=== PATIENT | female | born 1965 | race Caucasian/White ===

== ENCOUNTER 2018-05-10 14:44 | Emergency (ER) | payer MEDICARE ==
[2018-05-10 16:53] LABS: EOSINOPHILS % (AUTO) 2.6 % (0.0-8.0); HEMATOCRIT 39.4 % (36-48); LYMPHOCYTES % (AUTO) 23.4 % (21.0-51.0); MEAN CORPUSCULAR HGB CONC 33.3 g/dL (32.0-36.0); MEAN CORPUSCULAR VOLUME 93.2 fL (79-99); MONOCYTES % (AUTO) 7.1 % (3.0-13.0); NEUTROPHILS % (AUTO) 65.9 % (40.0-77.0); PLATELET COUNT (AUTO) 315 K/uL (130-400); RED BLOOD CELL COUNT(AUTO) 4.23 MIL/uL (4.00-5.50); RED CELL DISTRIBUTION WIDTH 13.5 % (11.0-15.5); WHITE BLOOD COUNT (AUTO) 11.6 K/uL (4.8-10.8)
[2018-05-10] MEDS ORDERED: ONDANSETRON HCL 4 MG/2 ML VIAL ONE (17:06)
[2018-05-10] MEDS ORDERED: KETOROLAC TROMETHAMINE 30MG/ML ONE (17:06)
[2018-05-10] MEDS ORDERED: MORPHINE SULFATE 2 MG/ML 1ML SYG ONE (17:07)
[2018-05-10 17:30] LABS: INR 0.87 (0.85-1.15); PARTIAL THROMBOPLASTIN TIME 28.6 SEC (26.3-35.5); PROTHROMBIN TIME 9.2 SEC (9.6-11.6)
[2018-05-10 17:47] LABS: CARBON DIOXIDE 28 mmol/L (21-32); CHLORIDE 102 mmol/L (101-111); CREATININE 0.8 mg/dL (0.5-1.5); GLOMERULAR FILTR. RATE CALC 80 mL/min (>60); GLUCOSE,RANDOM 159 mg/dL (70-105); POTASSIUM 4.5 mmol/L (3.5-5.1); SODIUM SERUM 139 mmol/L (136-145); UREA NITROGEN, BLOOD 10 mg/dL (7-18)
[2018-05-10 17:48] LABS: APPEARANCE,URINE Clear (CLEAR); BILIRUBIN,URINE Negative (NEGATIVE); COLOR,URINE Yellow (YELLOW); GLUCOSE, URINE (UA) Negative (NEGATIVE); KETONES,URINE Negative (NEGATIVE); LEUKOCYTE ESTERASE ,URINE Negative (NEGATIVE); NITRATE,URINE Negative (NEGATIVE); OCCULT BLOOD,URINE Negative (NEGATIVE); PH,URINE 5.5 (5.0-8.0); PROTEIN,URINE Negative (NEGATIVE); UROBILINOGEN,URINE 0.2 mg/dL (0.2-1.0)
[2018-05-10 17:51] LABS: ALANINE AMINOTRANSFERASE 91 U/L (12-78); ALBUMIN 3.4 g/dL (3.5-5.0); ASPARTATE AMINOTRANSFERASE 57 U/L (10-37); BILIRUBIN,DIRECT < 0.1 mg/dL (0.0-0.3); BILIRUBIN,TOTAL 0.2 mg/dL (0.2-1.0); CREATINE KINASE, TOTAL 136 U/L (21-232); LIPASE 206 U/L (114-286); TOTAL PROTEIN, SERUM 7.6 g/dL (6.0-8.3)
== END 2018-05-10 19:54 | disposition home or self-care (01) ==
LOC: EDH 14:44
DX: R10.12 Left upper quadrant pain (principal); R07.89 Other chest pain; F41.9 Anxiety disorder, unspecified; F31.9 Bipolar disorder, unspecified; Z87.891 Personal history of nicotine dependence
CPT/HCPCS: 36415; 71046; 74176; 80048; 80076; 81003; 82550; 83690; 84484; 85025; 85610; 85730; 93005; 96374; 96375; 99284; J1885; J2405

== ENCOUNTER → 2019-05-13 | Outpatient (CLI) | payer MEDICARE | END | disposition home or self-care (01) | LOC: OIH 14:33 | PROVIDERS: ATTEND Internal Medicine | DX: R05 Cough (principal); K21.9 Gastro-esophageal reflux disease without esophagitis | CPT/HCPCS: 71046 ==

== ENCOUNTER 2021-06-29 22:17 | Emergency (ER) | payer MEDICARE ==
[2021-06-29] MEDS ORDERED: 0.9%NACL 1000ML 1,000 ML IV ONE (23:30)
[2021-06-29] MEDS ORDERED: ONDANSETRON 4MG INJ IVP ONE (23:30)
[2021-06-29 23:56] LABS: BASOPHILS % (AUTO) 0.5 % (0.0-5.0); EOSINOPHILS % (AUTO) 0.1 % (0.0-8.0); HEMATOCRIT 34.5 % (36-48); LYMPHOCYTES % (AUTO) 8.3 % (21.0-51.0); MEAN CORPUSCULAR HEMOGLOBIN 30.2 pg (27.0-33.0); MEAN CORPUSCULAR HGB CONC 34.2 g/dL (32.0-36.0); MEAN CORPUSCULAR VOLUME 88.2 fL (79-99); MONOCYTES % (AUTO) 10.8 % (3.0-13.0); PLATELET COUNT (AUTO) 227 K/uL (130-400); RED BLOOD CELL COUNT(AUTO) 3.91 MIL/uL (4.00-5.50); RED CELL DISTRIBUTION WIDTH 12.3 % (11.0-15.5); WHITE BLOOD COUNT (AUTO) 9.9 K/uL (4.8-10.8)
[2021-06-30] MEDS ORDERED: GUAIFENESIN-DM 200/20 MG 10 ML PO ONE
[2021-06-30 00:10] LABS: POTASSIUM 3.5 mmol/L (3.5-5.1)
[2021-06-30 00:14] LABS: ALBUMIN 3.6 g/dL (3.5-5.0); BILIRUBIN,TOTAL 0.3 mg/dL (0.2-1.0); TOTAL PROTEIN, SERUM 7.1 g/dL (6.0-8.3)
[2021-06-30] MEDS ORDERED: ONDA-104 PO (00:16)
[2021-06-30] MEDS ORDERED: D-ME118S47 PO (00:16)
[2021-06-30 00:25] VITALS: BP 134/66
[2021-06-30 00:33] LABS: APPEARANCE,URINE Clear (CLEAR); BILIRUBIN,URINE Negative (NEGATIVE); COLOR,URINE Yellow (YELLOW); GLUCOSE, URINE (UA) Negative (NEGATIVE); KETONES,URINE 15 mg/dL (NEGATIVE); LEUKOCYTE ESTERASE ,URINE Negative (NEGATIVE); NITRATE,URINE Negative (NEGATIVE); OCCULT BLOOD,URINE Negative (NEGATIVE); PH,URINE 6.5 (5.0-8.0); PROTEIN,URINE Trace mg/dL (NEGATIVE)
[2021-06-30 00:47] LABS: BACTERIA,URINE None Seen /HPF (None Seen); RBC,URINE 0-1 /HPF (0-1); SQUAMOUS EPITHELIAL CELL,UR Few /HPF (0-2)
== END 2021-06-30 00:42 | disposition home or self-care (01) ==
LOC: EDH 22:17
DX: J11.1 Influenza due to unidentified influenza virus with other respiratory manifestations (principal); F41.9 Anxiety disorder, unspecified; F32.A Depression, unspecified
CPT/HCPCS: 36415; 80053; 81001; 85025; 96361; 96374; 99283; J2405; J7030

== ENCOUNTER 2023-12-07 18:30 | Emergency (ER) | payer OTHER ==
[~2023-12-07] VITALS: Ht 157.5 cm; Wt 90.7 kg
[~2023-12-07 18:30] MED LIST: BROM118S48 PO; ONDA-104 PO
[2023-12-07 18:54] LABS: BASOPHILS # (AUTO) 0.08 K/uL (0.00-0.20); BASOPHILS % (AUTO) 0.6 % (0.0-5.0); EOSINOPHILS # (AUTO) 0.16 K/uL (0.00-0.70); EOSINOPHILS % (AUTO) 1.3 % (0.0-8.0); HEMATOCRIT 38.8 % (36-48); IMMATURE GRANULOCYTE ABSOLUTE 0.02 K/uL (0-1); LYMPHOCYTES # (AUTO) 3.5 K/uL (1.0-4.8); LYMPHOCYTES % (AUTO) 28.7 % (21.0-51.0); MEAN CORPUSCULAR HEMOGLOBIN 31.1 pg (27.0-33.0); MEAN CORPUSCULAR HGB CONC 35.1 g/dL (32.0-36.0); MEAN CORPUSCULAR VOLUME 88.8 fL (79-99); MONOCYTES # (AUTO) 0.7 K/uL (0.1-1.0); MONOCYTES % (AUTO) 5.8 % (3.0-13.0); NEUTROPHILS # (AUTO) 7.8 K/uL (1.8-7.7); NEUTROPHILS % (AUTO) 63.4 % (40.0-77.0); PLATELET COUNT (AUTO) 259 K/uL (130-400); RED BLOOD CELL COUNT(AUTO) 4.37 MIL/uL (4.00-5.50); WHITE BLOOD COUNT (AUTO) 12.3 K/uL (4.8-10.8)
[2023-12-07 19:07] LABS: POTASSIUM 3.7 mmol/L (3.5-5.1)
[2023-12-07 19:31] LABS: B-TYPE NATRIURETIC PEPTIDE < 5 pg/mL (0-100)
[2023-12-07] MEDS: 0.9%NACL 1000ML 1,000 ML IV SCH (20:47)
[2023-12-07 21:12] LABS: APPEARANCE,URINE CLEAR (CLEAR); BILIRUBIN,URINE NEGATIVE (NEGATIVE); COLOR,URINE LIGHT-YELLOW (YELLOW); GLUCOSE, URINE (UA) NEGATIVE (NEGATIVE); KETONES,URINE NEGATIVE (NEGATIVE); LEUKOCYTE ESTERASE ,URINE NEGATIVE Leu/uL (NEGATIVE); NITRATE,URINE NEGATIVE (NEGATIVE); OCCULT BLOOD,URINE NEGATIVE (NEGATIVE); PH,URINE 6.5 (5.0-8.0); PROTEIN,URINE NEGATIVE (NEGATIVE); UROBILINOGEN,URINE 0.2 mg/dL (0.2-1.0)
[2023-12-07 21:13] LABS: ADD UA MICROSCOPIC NO
[2023-12-07] MEDS ORDERED: ASPI-1197 PO (21:31)
[2023-12-07 22:09] VITALS: BP 155/76; PULSE 88; RESP 18; TEMP 98; O2SAT 98
== END 2023-12-07 22:13 | disposition home or self-care (01) ==
LOC: EDH 18:30
DX: R07.89 Other chest pain (principal); E86.0 Dehydration; E11.9 Type 2 diabetes mellitus without complications; E78.00 Pure hypercholesterolemia, unspecified; I10 Essential (primary) hypertension; E66.9 Obesity, unspecified; Z68.30 Body mass index [BMI] 30.0-30.9, adult; Z90.710 Acquired absence of both cervix and uterus; Z90.89 Acquired absence of other organs; Z98.890 Other specified postprocedural states; Z68.36 Body mass index [BMI] 36.0-36.9, adult
CPT/HCPCS: 99285; 96360; 71045; 80048; 83880; 85025; 81003; 36415; 93005; J7030

== ENCOUNTER 2024-07-04 14:12 | Emergency (ER) | payer OTHER ==
[~2024-07-04] VITALS: Ht 160 cm; Wt 83.5 kg
[~2024-07-04 14:12] MED LIST changes: +ASPI-1197 PO
--- NOTE | 2024-07-04 14:27 | NUR ---
POISON CONTROL NOTIFIED, STATES OZEMPIC IS NOT AT TOXIC LEVEL, RECOMENDS SYMPTOMATIC SUPPORT, , EXPECTED TO SEE INCREASED SIDE EFFECTS CASE # [id number] SPOKE TO STEVEN
[2024-07-04 14:49] LABS: BASOPHILS # (AUTO) 0.07 K/uL (0.00-0.20); BASOPHILS % (AUTO) 0.7 % (0.0-5.0); EOSINOPHILS # (AUTO) 0.04 K/uL (0.00-0.70); EOSINOPHILS % (AUTO) 0.4 % (0.0-8.0); HEMATOCRIT 40.9 % (36-48); IMMATURE GRANULOCYTE ABSOLUTE 0.02 K/uL (0-1); LYMPHOCYTES # (AUTO) 2.9 K/uL (1.0-4.8); LYMPHOCYTES % (AUTO) 27.4 % (21.0-51.0); MEAN CORPUSCULAR HEMOGLOBIN 31.3 pg (27.0-33.0); MEAN CORPUSCULAR HGB CONC 34.5 g/dL (32.0-36.0); MEAN CORPUSCULAR VOLUME 90.9 fL (79-99); MONOCYTES # (AUTO) 0.7 K/uL (0.1-1.0); MONOCYTES % (AUTO) 6.2 % (3.0-13.0); NEUTROPHILS # (AUTO) 6.9 K/uL (1.8-7.7); NEUTROPHILS % (AUTO) 65.1 % (40.0-77.0); PLATELET COUNT (AUTO) 300 K/uL (130-400); RED CELL DISTRIBUTION WIDTH 12.2 % (11.0-15.5); WHITE BLOOD COUNT (AUTO) 10.6 K/uL (4.8-10.8)
[2024-07-04 14:59] LABS: CREATININE 0.9 mg/dL (0.5-1.0); POTASSIUM 3.7 mmol/L (3.5-5.1)
[2024-07-04] MEDS: 0.9%NACL 1000ML 1,000 ML IV STA ×2 (15:14→17:05)
[2024-07-04] MEDS: ondanSETRON 4MG INJ IVP STA (15:14)
[2024-07-04] MEDS: FAMOTIDINE 20MG VIAL IV STA (15:14)
[2024-07-04] MEDS: MAG/ALUM/SIMETH 30 ML UDCUP PO ONE (15:15)
[2024-07-04] MEDS: LIDOCAINE HCL 2% VISCOUS 15 ML UDCUP PO ONE (15:15)
[2024-07-04] MEDS: DICYCLOMINE HCL 10 MG/5 ML ML PO ONE (15:15)
[2024-07-04] MEDS: acetaMINOPHEN 500 MG TABLET PO STA (15:15)
[2024-07-04] MEDS: DiphenhydrAMINE HCL 50 MG/ML VIAL IV STA (16:58)
[2024-07-04] MEDS: PROCHLORPERAZINE 10MG/2ML INJ IV STA (16:58)
--- NOTE | 2024-07-04 17:35 | ERN ---
ED Note History of Present Illness Stated Complaint: ACCIDENTAL OVERDOSE Chief Complaint: Overdose Time Seen by MD: 14:20 Time Seen by Midlevel: 14:22 Dictation: 58-YEAR-OLD FEMALE WITH A HISTORY OF DIABETES COMING IN WITH COMPLAINTS OF NAUSEA, HEADACHE AND BILATERAL EYE PAIN AFTER TAKING OZEMPIC. PATIENT STATES SHE PICKED UP FEEL OZEMPIC AND NOBODY GAVE HER INSTRUCTIONS HOW TO TAKE HIS THE SHE TOOK 0.5 MONDAY, MONDAY, MONDAY INSTEAD OF JUST ONE WEEKLY. POISON CONTROL WAS CALLED BY TRIAGE NURSE. POISON CONTROL RECOMMENDED SYMPTOMATIC CONTROL AND TO STOP TAKING THE MEDICATION UNTIL NEXT WEEK. Allergies: Coded Allergies: No Known Drug Allergies (Unverified Allergy, Unknown, 06/29/21) Home Meds Active Scripts Aspirin (Aspirin) 81 Mg Tab.chew, 81 MG PO DAILY for 30 Days, #30 TAB.CHEW Prov:RONA TAMAYO MD 12/07/23 Ondansetron HCl (Ondansetron HCl) 4 Mg Tablet, 4 MG PO TID, #15 TAB Prov:OLI DAVIS MD 06/30/21 D-Methorphan Hb/P-Epd HCl/Bpm (Bromfed Dm Cough Syrup) 118 Ml Syrup, 10 ML PO QID, #120 ML Prov:OLI DAVIS MD 06/30/21 Past Medical History Past Medical History: Anxiety, Bipolar, Depression, Diabetes-Type II, Hypertension, Kidney Stone Surgical History: Hysterectomy, Cholecystectomy, Surgical History Other: L WRIST Social History: Negative, Lives with family History: Not Applicable Review of System Dictation CONSTITUTIONAL: NEGATIVE FOR FEVER,CHILLS, AND WEIGHT LOSS EYES: NEGATIVE FOR INJURY, PAIN,REDNESS, AND DISCHARGE ENT: NEGATIVE FOR INJURY,PAIN OR SWELLING CARDIOVASCULAR: NEGATIVE FOR CHEST PAIN, PALPITATIONS, AND EDEMA RESPIRATORY: NEGATIVE FOR SHORTNESS OF BREATH, COUGH, AND WHEEZING, ABDOMEN/GI: NEGATIVE FOR ABDOMINAL PAIN, POSITIVE NAUSEA, NO VOMITING, NO DIARRHEA, AND NO CONSTIPATION BACK: NEGATIVE FOR INJURY AND PAIN : NEGATIVE FOR INJURY, BLEEDING AND DISCHARGE MS/EXTREMITY: NEGATIVE FOR INJURY AND DEFORMITY SKIN: NEGATIVE FOR RASH, AND DISCOLORATION NEURO: NEGATIVE FOR HEADACHE, WEAKNESS, NUMBNESS, TINGLING, AND SEIZURE PSYCH: NEGATIVE FOR SUICIDE IDEATION, HOMICIDAL IDEATION, AND HALLUCINATIONS Review of Systems: was completed Initial Vital Sign VS Vital Signs Date Time Temp Pulse Resp B/P (MAP) Pulse Ox O2 Delivery O2 Flow Rate FiO2 07/04/24 14:12 99.3 70 20 181/93 99 Room Air 0 07/04/24 14:31 21 Physical Exam Dictation GENERAL: AWAKE, ALERT, NAD HEAD/FACE: NORMOCEPHALIC, ATRAUMATIC EYES: PERRL, EOMI, VISION AT BASELINE ENT: ORAL CAVITY CLEAR, TMS CLEAR, NO SIGNS OF INFECTION NECK: TRACHEA MIDLINE, SUPPLE, NO NUCHAL RIGIDITY CARDIOVASCULAR: RRR, NORMAL S1/S2, NO MRGS, NO JVD RESPIRATORY: CTAB, NO RESPIRATORY DISTRESS, NO RALES OR WHEEZES ABDOMEN: SOFT, NON-TENDER, NON-DISTENDED, NORMAL BOWEL SOUNDS, NO GUARDING OR REBOUND. SKIN: WARM, DRY, NORMAL TURGOR, NO RASH MS/EXTREMITY: PULSES EQUAL, NO CYANOSIS, NEUROVASCULAR INTACT, FROM NEURO: COAX4, GCS 15, STRENGTH 5/5, CN 2-12 INTACT, NORMAL CEREBELLAR EXAM, NORMAL GAIT, PSYCH: NORMAL BEHAVIOR, MOOD, AND AFFECT NORMAL Results (Laboratory/Radiology) Laboratory/Radiology Laboratory Tests Test 07/04/24 14:40 White Blood Count 10.6 K/uL (4.8-10.8) Red Blood Count 4.50 MIL/uL (4.00-5.50) Hemoglobin 14.1 g/dL (12.0-16.0) Hematocrit 40.9 % (36-48) Mean Corpuscular Volume 90.9 fL (79-99) Mean Corpuscular Hemoglobin 31.3 pg (27.0-33.0) Mean Corpuscular Hemoglobin Concent 34.5 g/dL (32.0-36.0) Red Cell Distribution Width 12.2 % (11.0-15.5) Platelet Count 300 K/uL (130-400) Mean Platelet Volume 8.9 fL (7.5-10.5) Immature Granulocyte % (Auto) 0.2 % (0-1) Neutrophils (%) (Auto) 65.1 % (40.0-77.0) Lymphocytes (%) (Auto) 27.4 % (21.0-51.0) Monocytes (%) (Auto) 6.2 % (3.0-13.0) Eosinophils (%) (Auto) 0.4 % (0.0-8.0) Basophils (%) (Auto) 0.7 % (0.0-5.0) Neutrophils # (Auto) 6.9 K/uL (1.8-7.7) Lymphocytes # (Auto) 2.9 K/uL (1.0-4.8) Monocytes # (Auto) 0.7 K/uL (0.1-1.0) Eosinophils # (Auto) 0.04 K/uL (0.00-0.70) Basophils # (Auto) 0.07 K/uL (0.00-0.20) Absolute Immature Granulocyte (auto 0.02 K/uL (0-1) Nucleated Red Blood Cells 0.0 % (0.0-0.19) Sodium Level 139 mmol/L (136-145) Potassium Level 3.7 mmol/L (3.5-5.1) Chloride Level 102 mmol/L (101-111) Carbon Dioxide Level 29 mmol/L (21-32) Blood Urea Nitrogen 7 mg/dL (7-18) Creatinine 0.9 mg/dL (0.5-1.0) Glomerular Filtration Rate Calc 74 mL/min (>90) Random Glucose 239 mg/dL (70-105) H Total Calcium 9.0 mg/dL (8.5-10.1) Lipase 26 U/L (16-77) Labs Reviewed?: Yes ED Course ED Course Orders Procedure Category Date Status Time Cbc With Differential LAB 07/04/24 Complete 14:21 Basic Metabolic Panel LAB 07/04/24 Complete 14:21 Lipase LAB 07/04/24 Complete 14:21 0.9%Nacl 1000ml (Ns PHA 07/04/24 Complete 1000ml) 14:21 Ondansetron 4mg Inj PHA 07/04/24 Complete (Zofran 4mg Inj) 14:21 Famotidine 20mg Vial PHA 07/04/24 Complete (Pepcid 20mg Vial) 14:21 Lidocaine Hcl 2% PHA 07/04/24 Complete Viscous (Lidocaine Hcl 14:30 Mag/Alum/Simeth 30ml PHA 07/04/24 Complete (Maalox Plus 30ml) 14:30 Dicyclomine Hcl PHA 07/04/24 Complete (Bentyl 10mg/5ml 14:30 Acetaminophen 500mg PHA 07/04/24 Complete Tab (Tylenol 500mg T 14:25 0.9%Nacl 1000ml (Ns PHA 07/04/24 Complete 1000ml) 16:12 Diphenhydramine Hcl PHA 07/04/24 Complete (Benadryl Inj) 16:12 Prochlorperazine PHA 07/04/24 Complete 10mg/2ml Inj 16:12 Current Medications Medications (Trade) Dose Ordered Sig/Damien Route PRN Reason Start Time Stop Time Status Last Admin Dose Admin Acetaminophen (TYLenol 500MG TAB) 1,000 mg ONCE STAT PO 07/04/24 14:25 07/04/24 14:28 DC 07/04/24 15:15 Al Hydroxide/Mg Hydroxide (MAALox PLUS 30ML) 30 ml ONCE ONCE PO 07/04/24 14:30 07/04/24 14:31 DC 07/04/24 15:15 Dicyclomine HCl (Bentyl 10mg/5ml Syrup) 10 mg ONCE ONCE PO 07/04/24 14:30 07/04/24 14:31 DC 07/04/24 15:15 Diphenhydramine HCl (BENAdryl INJ) 25 mg ONCE STAT IV 07/04/24 16:12 07/04/24 16:18 DC 07/04/24 16:58 Famotidine (Pepcid 20mg Vial) 20 mg ONCE STAT IV 07/04/24 14:21 07/04/24 14:24 DC 07/04/24 15:14 Lidocaine HCl (Lidocaine HCl 2% Viscous) 10 ml ONCE ONCE PO 07/04/24 14:30 07/04/24 14:31 DC 07/04/24 15:15 Ondansetron HCl (zoFRAN 4MG INJ) 4 mg ONCE STAT IVP 07/04/24 14:21 07/04/24 14:25 DC 07/04/24 15:14 Prochlorperazine Edisylate (Compazine 10mg/ 2ml Inj) 10 mg ONCE STAT IV 07/04/24 16:12 07/04/24 16:18 DC 07/04/24 16:58 Sodium Chloride 1,000 ml @ 500 mls/hr Q2H STAT IV 07/04/24 16:12 07/04/24 18:11 DC 07/04/24 17:05 Sodium Chloride 1,000 ml @ 1,000 mls/hr Q1H STAT IV 07/04/24 14:21 07/04/24 15:20 DC 07/04/24 15:14 Vital Signs Date Time Temp Pulse Resp B/P (MAP) Pulse Ox O2 Delivery O2 Flow Rate FiO2 07/04/24 18:01 98.4 77 18 166/79 97 Room Air* 0 21 07/04/24 14:31 99.0 69 22 181/87 97 Room Air* 0 21 07/04/24 14:12 99.3 70 20 181/93 99 Room Air 0 Medical Decision Making MDM MDM: 58-YEAR-OLD FEMALE WITH A HISTORY OF DIABETES COMING IN WITH COMPLAINTS OF NAUSEA, HEADACHE AND BILATERAL EYE PAIN AFTER TAKING OZEMPIC. PATIENT STATES SHE PICKED UP FEEL OZEMPIC AND NOBODY GAVE HER INSTRUCTIONS HOW TO TAKE HIS THE SHE TOOK 0.5 MONDAY, MONDAY, MONDAY INSTEAD OF JUST ONE WEEKLY. POISON CONTROL WAS CALLED BY TRIAGE NURSE. POISON CONTROL RECOMMENDED SYMPTOMATIC CONTROL AND TO STOP TAKING THE MEDICATION UNTIL NEXT WEEK.CBC SHOWS NO LEUKOCYTOSIS, NO ANEMIA, NO THROMBOCYTOPENIA. CHEMISTRY UNREMARKABLE OTHER THAN HYPERGLYCEMIA AT 2:39 A.M.. AFTER FLUIDS, ANTIEMETICS, PAIN MEDICATION PATIENT FEELS MUCH BETTER. DISCUSSED WITH THE PATIENT RECOMMENDATION FROM POISON CONTROL. TOLD HER TO AVOID TAKING THOSE IMPACT UNTIL NEXT WEEK. PATIENT VERBALIZED UNDERSTANDING, ANSWERED ALL QUESTIONS. DIFFERENTIAL DIAGNOSIS: HYPOGLYCEMIA, GASTROENTERITIS, RATIONALE: TESTS CONSIDERED AND ORDERED SECONDARY TO SHARED DECISION MAKING INCLUDE: PREVIOUS OUTSIDE RECORDS REVIEWED: OLD ER VISITS. RISK OF COMPLICATION AND/OR MORBIDITY OR MORTALITY OF PATIENT MANAGEMENT: NONE MEDICATIONS-PER MEDICATION RECONCILIATION NEED FOR HOSPITALIZATION: PATIENT DOES NOT MEET CRITERIA FOR HOSPITALIZATION. NEED FOR EMERGENCY MAJOR/MINOR SURGERY: NO THERE ARE NO SOCIAL CONCERNS WITH THIS PATIENT. PRESCRIPTION DRUG MANAGEMENT PRESCRIPTIONS WILL INCLUDE SYMPTOMATIC CARE PATIENT'S PRIOR EXTERNAL MEDICAL RECORDS FROM OTHER ER VISITS WERE REVIEWED BY ME INDICATED. PRIOR TESTING AND RESULTS FROM PREVIOUS VISITS WERE REVIEWED. PRIOR TESTS WERE TAKEN INTO ACCOUNT WITH MEDICAL DECISION MAKING AND RESOURCE UTILIZATION, INDEPENDENT HISTORIAN/HISTORIANS WERE USED TO OBTAIN COMPLETE MEDICAL HISTORY. I INDEPENDENTLY INTERPRETED THE TEST THAT WERE PERFORMED, RESULTS WERE REVIEWED BY ME AND CONSIDERED FINDINGS ON RADIOLOGY IF ORDERED. MEDICAL MANAGEMENT AND EXAMINATION INTERPRETATION DISCUSSIONS WERE HAD BY ME WITH OTHER QUALIFIED HEALTHCARE PROFESSIONALS INDICATED FOR THE PATIENT'S CARE. DX & DISP Disposition: Discharge Departure Impression: Primary Impression: Medication adverse effect Condition: Stable Additional Instructions: PLEASE TAKE YOUR OZEMPIC PRESCRIBED. NEXT DOSE SHE WOULD BE NEXT WEEK. CALL YOUR PCP IF YOU HAVE ANY SYMPTOMS OR ANYMORE QUESTIONS REGARDING YOUR MEDICATIONS. Referrals: YOLA CAT MD (PCP) Time of Disposition: 17:34 I have reviewed the case, and I agree with, Diagnosis and Plan MAUREEN RODRIGUEZ NP July 04, 2024 17:35 ZACHARIAH MCFADDEN DO July 05, 2024 09:40
[2024-07-04 18:01] VITALS: BP 166/79; PULSE 77; RESP 18; TEMP 98.4; O2SAT 97
== END 2024-07-04 18:07 | disposition home or self-care (01) ==
LOC: EDH 14:12
DX: R11.0 Nausea (principal); R51.9 Headache, unspecified; H57.13 Ocular pain, bilateral; T50.995A Adverse effect of other drugs, medicaments and biological substances, initial encounter; E11.9 Type 2 diabetes mellitus without complications; F31.9 Bipolar disorder, unspecified; I10 Essential (primary) hypertension; Z79.82 Long term (current) use of aspirin; Z90.49 Acquired absence of other specified parts of digestive tract; Z90.710 Acquired absence of both cervix and uterus; Z98.890 Other specified postprocedural states; Y92.89 Other specified places as the place of occurrence of the external cause
CPT/HCPCS: 99284; 96374; 96375; 96361; 80048; 83690; 85025; 36415; J1200; J3490; J7030 ×2; J0780; J2405

== ENCOUNTER 2024-07-08 11:05 | Emergency (ER) | payer OTHER ==
[~2024-07-08] VITALS: Ht 160 cm; Wt 83.5 kg
[2024-07-08 11:41] LABS: BASOPHILS # (AUTO) 0.05 K/uL (0.00-0.20); BASOPHILS % (AUTO) 0.4 % (0.0-5.0); EOSINOPHILS # (AUTO) 0.15 K/uL (0.00-0.70); EOSINOPHILS % (AUTO) 1.2 % (0.0-8.0); HEMATOCRIT 42.7 % (36-48); IMMATURE GRANULOCYTE ABSOLUTE 0.04 K/uL (0-1); LYMPHOCYTES # (AUTO) 3.9 K/uL (1.0-4.8); LYMPHOCYTES % (AUTO) 32.3 % (21.0-51.0); MEAN CORPUSCULAR HEMOGLOBIN 31.4 pg (27.0-33.0); MEAN CORPUSCULAR HGB CONC 34.7 g/dL (32.0-36.0); MEAN CORPUSCULAR VOLUME 90.7 fL (79-99); MONOCYTES # (AUTO) 0.7 K/uL (0.1-1.0); MONOCYTES % (AUTO) 5.8 % (3.0-13.0); NEUTROPHILS # (AUTO) 7.3 K/uL (1.8-7.7); PLATELET COUNT (AUTO) 322 K/uL (130-400); RED BLOOD CELL COUNT(AUTO) 4.71 MIL/uL (4.00-5.50); RED CELL DISTRIBUTION WIDTH 12.1 % (11.0-15.5); WHITE BLOOD COUNT (AUTO) 12.2 K/uL (4.8-10.8)
[2024-07-08 11:53] LABS: ALBUMIN 3.8 g/dL (3.5-5.0); BILIRUBIN,DIRECT 0.2 mg/dL (0.0-0.3); BILIRUBIN,TOTAL 0.5 mg/dL (0.2-1.0); CREATININE 0.8 mg/dL (0.5-1.0); POTASSIUM 3.8 mmol/L (3.5-5.1); TOTAL PROTEIN, SERUM 8.1 g/dL (6.0-8.3)
[2024-07-08] MEDS: metoCLOPRAmide 10 MG/2 ML VIAL IVP STA (11:59)
[2024-07-08] MEDS: ketOROlac 15MG/ML VIAL (15MG/ML) IV STA (11:59)
[2024-07-08] MEDS: DiphenhydrAMINE HCL 50 MG/ML VIAL IV STA (11:59)
[2024-07-08] MEDS: 0.9%NACL 1000ML 1,000 ML IV STA (11:59)
--- NOTE | 2024-07-08 12:30 | ERN ---
ED Note History of Present Illness Stated Complaint: POSSIBLE FOOD POISONING Chief Complaint: Nausea,Vomiting,Diarrhea Time Seen by MD: 11:10 Time Seen by Midlevel: 11:15 Dictation: 58 year old female coming in with complaints of diarrhea and vomiting onset Monday after eating sushi. Denies having any fever, chest pain, shortness of breath, headaches. Allergies: Coded Allergies: No Known Drug Allergies (Unverified Allergy, Unknown, 06/29/21) Home Meds Active Scripts Ondansetron (Ondansetron Odt) 4 Mg Tab.rapdis, 1 TAB PO Q6HPRN PRN for nausea/vomiting for 3 Days, #12 TAB 0 Refills Prov:MAUREEN RODRIGUEZ NP 07/08/24 Aspirin (Aspirin) 81 Mg Tab.chew, 81 MG PO DAILY for 30 Days, #30 TAB.CHEW Prov:RONA TAMAYO MD 12/07/23 Ondansetron HCl (Ondansetron HCl) 4 Mg Tablet, 4 MG PO TID, #15 TAB Prov:OLI DAVIS MD 06/30/21 D-Methorphan Hb/P-Epd HCl/Bpm (Bromfed Dm Cough Syrup) 118 Ml Syrup, 10 ML PO QID, #120 ML Prov:OLI DAVIS MD 06/30/21 Past Medical History Past Medical History: Anxiety, Bipolar, Depression, Diabetes-Type II, Hypertension, Kidney Stone Surgical History: Hysterectomy, Cholecystectomy, Surgical History Other: L WRIST Social History: Negative, Lives with family History: Not Applicable Review of System Dictation Constitutional: Negative for fever,chills, and weight loss Eyes: Negative for injury, pain,redness, and discharge ENT: Negative for injury,pain or swelling Cardiovascular: Negative for chest pain, palpitations, and edema Respiratory: Negative for shortness of breath, cough, and wheezing, Abdomen/GI: Complaining of nausea and vomiting and diarrhea Back: Negative for injury and pain : Negative for injury, bleeding and discharge MS/Extremity: Negative for injury and deformity Skin: Negative for rash, and discoloration Neuro: Negative for headache, weakness, numbness, tingling, and seizure Psych: Negative for suicide ideation, homicidal ideation, and hallucinations Review of Systems: was completed Initial Vital Sign VS Vital Signs Date Time Temp Pulse Resp B/P (MAP) Pulse Ox O2 Delivery O2 Flow Rate FiO2 07/08/24 11:14 98.1 77 16 165/79 96 Room Air 0 07/08/24 11:14 21 Physical Exam Dictation General: awake, alert, NAD Head/Face: Normocephalic, atraumatic Eyes: PERRL, EOMI, vision at baseline ENT: oral cavity clear, TMs clear, no signs of infection Neck: Trachea midline, supple, no nuchal rigidity Cardiovascular: RRR, normal S1/S2, No MRGs, no JVD Respiratory: CTAB, no respiratory distress, No rales or wheezes Abdomen: Soft, non-tender, non-distended, normal bowel sounds, no guarding or rebound. Skin: Warm, dry, normal turgor, no rash MS/Extremity: Pulses equal, no cyanosis, neurovascular intact, FROM Neuro: COAx4, GCS 15, strength 5/5, CN 2-12 intact, normal cerebellar exam, normal gait, Psych: Normal behavior, mood, and affect normal Results (Laboratory/Radiology) Laboratory/Radiology Laboratory Tests Test 07/08/24 11:34 White Blood Count 12.2 K/uL (4.8-10.8) H Red Blood Count 4.71 MIL/uL (4.00-5.50) Hemoglobin 14.8 g/dL (12.0-16.0) Hematocrit 42.7 % (36-48) Mean Corpuscular Volume 90.7 fL (79-99) Mean Corpuscular Hemoglobin 31.4 pg (27.0-33.0) Mean Corpuscular Hemoglobin Concent 34.7 g/dL (32.0-36.0) Red Cell Distribution Width 12.1 % (11.0-15.5) Platelet Count 322 K/uL (130-400) Mean Platelet Volume 8.5 fL (7.5-10.5) Immature Granulocyte % (Auto) 0.3 % (0-1) Neutrophils (%) (Auto) 60.0 % (40.0-77.0) Lymphocytes (%) (Auto) 32.3 % (21.0-51.0) Monocytes (%) (Auto) 5.8 % (3.0-13.0) Eosinophils (%) (Auto) 1.2 % (0.0-8.0) Basophils (%) (Auto) 0.4 % (0.0-5.0) Neutrophils # (Auto) 7.3 K/uL (1.8-7.7) Lymphocytes # (Auto) 3.9 K/uL (1.0-4.8) Monocytes # (Auto) 0.7 K/uL (0.1-1.0) Eosinophils # (Auto) 0.15 K/uL (0.00-0.70) Basophils # (Auto) 0.05 K/uL (0.00-0.20) Absolute Immature Granulocyte (auto 0.04 K/uL (0-1) Nucleated Red Blood Cells 0.0 % (0.0-0.19) Sodium Level 135 mmol/L (136-145) L Potassium Level 3.8 mmol/L (3.5-5.1) Chloride Level 101 mmol/L (101-111) Carbon Dioxide Level 26 mmol/L (21-32) Blood Urea Nitrogen 9 mg/dL (7-18) Creatinine 0.8 mg/dL (0.5-1.0) Glomerular Filtration Rate Calc 85 mL/min (>90) Random Glucose 110 mg/dL (70-105) H Total Calcium 9.5 mg/dL (8.5-10.1) Total Bilirubin 0.5 mg/dL (0.2-1.0) Direct Bilirubin 0.2 mg/dL (0.0-0.3) Aspartate Amino Transf (AST/SGOT) 24 U/L (10-37) Alanine Aminotransferase (ALT/SGPT) 30 U/L (12-78) Alkaline Phosphatase 113 U/L (50-136) Total Protein 8.1 g/dL (6.0-8.3) Albumin 3.8 g/dL (3.5-5.0) Lipase 31 U/L (16-77) Labs Reviewed?: Yes EKG Comment: EKGs done at 1:33 p.m.. Sinus rhythm at a rate of 66. No STEMI interpreted by ER MD. ED Course ED Course Orders Procedure Category Date Status Time Cbc With Differential LAB 07/08/24 Complete 11:16 Basic Metabolic Panel LAB 07/08/24 Complete 11:16 Hepatic Function Panel LAB 07/08/24 Complete 11:16 Lipase LAB 07/08/24 Complete 11:16 0.9%Nacl 1000ml (Ns PHA 07/08/24 Complete 1000ml) 11:16 Ketorolac PHA 07/08/24 Complete Tromethamine 15mg/Ml 11:16 Diphenhydramine Hcl PHA 07/08/24 Complete (Benadryl Inj) 11:16 Metoclopramide 10 PHA 07/08/24 Complete Mg/2 Ml Vial (Reglan 1 11:16 12 Lead Ekg Tracing- EKG 07/08/24 Resulted Technical 13:39 Current Medications Medications (Trade) Dose Ordered Sig/Damien Route PRN Reason Start Time Stop Time Status Last Admin Dose Admin Diphenhydramine HCl (BENAdryl INJ) 25 mg ONCE STAT IV 07/08/24 11:16 07/08/24 11:20 DC 07/08/24 11:59 Ketorolac Tromethamine (toRADol) 15 mg ONCE STAT IV 07/08/24 11:16 07/08/24 11:20 DC 07/08/24 11:59 Metoclopramide HCl (regLAN 10MG IV) 10 mg ONCE STAT IVP 07/08/24 11:16 07/08/24 11:20 DC 07/08/24 11:59 Sodium Chloride 1,000 ml @ 1,000 mls/hr Q1H STAT IV 07/08/24 11:16 07/08/24 12:15 DC 07/08/24 11:59 Vital Signs Date Time Temp Pulse Resp B/P (MAP) Pulse Ox O2 Delivery O2 Flow Rate FiO2 07/08/24 14:02 98.1 74 16 156/81 98 Room Air* 0 07/08/24 13:01 97.5 62 16 145/83 98 Room Air* 0 07/08/24 11:14 98.1 77 16 165/79 96 Room Air* 0 07/08/24 11:14 98.1 77 16 165/79 96 Room Air 0 HEART Score Response (Comments) Value History: Low suspicion (0) 0 EKG: Normal 0 Age: 45-65yrs (+1) 1 Risk Factors: 1-2 risk factors (+1) 1 Initial Troponin: Normal limit (0) 0 Total 2 Medical Decision Making MDM MDM: 58 year old female coming in with complaints of diarrhea and vomiting onset Monday after eating sushi. In addition patient states she has a headache. Denies having any fever, chest pain, shortness of breath, headaches. Lab work unremarkable. After fluids and migraine cocktail patient states she was and it is better. Discussed with the patient's follow up outpatient with the PCP and to return if symptoms worsen. Patient verbalized understanding, answered all questions. Differential diagnosis: Gastroenteritis, dehydration, GABBY Rationale: Tests considered and ordered secondary to shared decision making include: Previous outside records reviewed: Old ER visits. Risk of complication and/or morbidity or mortality of patient management: None Medications-Per medication reconciliation Need for hospitalization: Patient does not meet criteria for hospitalization. Need for emergency major/minor surgery: No There are no social concerns with this patient. Prescription drug management Prescriptions will include symptomatic care Patient's prior external medical records from other ER visits were reviewed by me as indicated. Prior testing and results from previous visits were reviewed. Prior tests were taken into account with medical decision making and resource utilization, independent historian/historians were used to obtain complete medical history. I independently interpreted the test that were performed, results were reviewed by me and considered findings on radiology if ordered. Medical management and examination interpretation discussions were had by me with other qualified healthcare professionals as indicated for the patient's care. DX & DISP Disposition: Discharge Departure Impression: Primary Impression: Gastroenteritis Condition: Stable Scripts Ondansetron (Ondansetron Odt) 4 Mg Tab.rapdis 1 TAB PO Q6HPRN PRN for nausea/vomiting for 3 Days, #12 TAB 0 Refills Prov: MAUREEN RODRIGUEZ NP 07/08/24 Additional Instructions: Follow up with PCP in 1-2 days. Referrals: YOLA CAT MD (PCP) Time of Disposition: 12:29 I have reviewed the case, and I agree with, Diagnosis and Plan MAUREEN RODRIGUEZ NP July 08, 2024 12:30 ZACHARIAH MCFADDEN DO July 09, 2024 07:46
[2024-07-08 14:02] VITALS: BP 156/81; PULSE 74; RESP 16; TEMP 98; O2SAT 98
[2024-07-08] MEDS ORDERED: ONDA-243 PO (14:08)
--- NOTE | 2024-07-08 14:20 | EKG ---
[facility] Test Date: 2024-07-08 Test Time: 13:33:07 Pat Name: ISSAC VERGARA Department: ED Room: Gender: F Manager Operations: 07 : 1965 Requested By: MAUREEN RODRIGUEZ Order Number: [id number] Reading MD: Estevan Moody Measurements Intervals [place] Rate: 66 P: 15 CT: 195 QRS: 39 QRSD: 82 T: 23 QT: 408 QTc: 428 Interpretive Statements Sinus rhythm Compared to ECG 12/07/2023 18:28:52 No significant changes Electronically Signed On 07-08-2024 14:43:01 CDT by Estevan Moody Please click the below link to view image of tracing.
== END 2024-07-08 13:25 | disposition home or self-care (01) ==
LOC: EDH 11:05
DX: K52.9 Noninfective gastroenteritis and colitis, unspecified (principal); E11.9 Type 2 diabetes mellitus without complications; F31.9 Bipolar disorder, unspecified; I10 Essential (primary) hypertension; Z79.82 Long term (current) use of aspirin; Z90.49 Acquired absence of other specified parts of digestive tract; Z90.710 Acquired absence of both cervix and uterus
CPT/HCPCS: 99284; 96374; 96375; 96361; 80076; 80048; 83690; 85025; 36415; 93005; J1885; J1200; J7030; J2765